=== PATIENT | male | born 1965 | race Caucasian/White ===

== ENCOUNTER 2016-11-11 06:33 | Day surgery (SDC) | payer MEDICAID ==
[~2016-11-11 06:33] MED LIST: ALTACE10 M1; ATORVASTATIN CA80 M1 PO; CHOLESTEROL MED; GLUCOPHAGE850 MG; IBUPROFEN600 M1 PO; JANUMET XR 50-1 EAC3 PO; KEFLEX500 MG; METFORMIN; NORCO 10-325 T1 EACH PO; NORCO 5-325 TA1 EACH; NORCO 5/325 TAB1 TAB PO; PERCOCET 5/3251 TAB; RAMIPRIL; TRICOR; TRICOR145 M1; TRICOR145 M2 PO
[2016-11-11 07:26] LABS: URINE LEUKOCYTE ESTERASE NEGATIVE (NEG); URINE PH 6.5 (5.0-8.0); URINE PROTEIN SMALL (NEG)
[2016-11-11 07:27] LABS: URINE APPEARANCE CLEAR; URINE BILIRUBIN NEGATIVE (NEG); URINE BLOOD LARGE (NEG); URINE COLOR YELLOW; URINE GLUCOSE (UA) MODERATE (NEG); URINE KETONE NEGATIVE (NEG); URINE NITRITE NEGATIVE (NEG)
[2016-11-11] MEDS ORDERED: JANUMET 50-1,01 EACH PO (07:29)
[2016-11-11] MEDS ORDERED: HYDROCODON-ACE1 EA16 PO (07:29)
[2016-11-11] MEDS ORDERED: GLUCOPHAGE850 M1 PO (07:30)
[2016-11-11] MEDS ORDERED: IBUPROFEN600 M1 PO (07:31)
[2016-11-11 07:33] LABS: URINE EPITHELIAL CELLS 0 /[HPF] (0-10); URINE WBC 0 /[HPF] (0-5)
[2016-11-11 07:45] LABS: BASO % 0.7 % (0-2); BASO ABSOLUTE COUNT 0.1 tho/cmm (0.0-0.2); EOS % 4.7 % (0-7); EOSINOPHIL ABSOLUTE COUNT 0.3 tho/cmm (0.0-0.7); HCT-HEMATOCRIT 44.3 % (36.0-53.5); IMMATURE GRANULOCYTES ABSOLUTE 0.02 tho/cmm (0-0.03); IMMATURE GRANULOCYTES PERCENT 0.3 % (0-0.3); LYMPH % 38.7 % (20-45); LYMPH ABSOLUTE COUNT 2.7 tho/cmm (0.8-4.5); MCH (MEAN CORPUSCULAR HGB) 29.2 pg (28.0-32.0); MCHC MEAN CORPUSCULAR HGB CONC 33.9 % (32.0-36.0); MCV (MEAN CELL VOLUME) 86.2 fl (82.0-96.0); MEAN PLATELET VOLUME 9.6 cmc (9.4-12.4); MONO % 6.8 % (0-12); MONOCYTE ABSOLUTE COUNT 0.5 tho/cmm (0.0-1.2); NEUTROPHIL ABSOLUTE COUNT 3.5 tho/cmm (1.6-8.0); NEUTROPHIL-AUTOMATED 3.5 tho/cmm (1.6-8.0); NEUTROPHILS % 48.8 % (40-80); PLATELET COUNT 231 tho/cmm (150-450); RED BLOOD COUNT 5.14 mil/cmm (4.40-5.70); RED CELL DISTRIBUTION WIDTH 13.3 % (12.4-16.4); WHITE BLOOD COUNT 7.1 tho/cmm (4.0-10.0)
[2016-11-11 07:59] LABS: ANION GAP 12 mmol/L (0-20); BLOOD UREA NITROGEN 15 mg/dl (6-24); CALCIUM 8.9 mg/dl (8.5-10.5); CARBON DIOXIDE-VENOUS 25 mmol/L (22-32); CHLORIDE 107 mmol/l (96-110); CREATININE 0.81 mg/dl (0.60-1.30); GLUCOSE 186 mg/dL (70-110); POTASSIUM 3.9 mmol/L (3.7-5.1); SODIUM 140 mmol/L (135-145); eGFR VALUE FOR BLACK >90 mL/Min
== END 2016-11-11 11:35 ==
LOC: SHSB 06:33 → ORE 09:12 → PACU 09:59 → SHSB 10:35
PROVIDERS: Urology
PROC: 0TF3XZZ Fragmentation in Right Kidney Pelvis, External Approach (ICD-10-PCS; principal; 2016-11-11)
DX: N20.0 Calculus of kidney (principal); E11.9 Type 2 diabetes mellitus without complications; Z79.899 Other long term (current) drug therapy
CPT/HCPCS: J1956